=== PATIENT | male | born 1935 | race Caucasian/White ===

== ENCOUNTER 2016-03-26 17:37 | Inpatient (IN) | payer OTHER ==
--- NOTE | 2016-03-26 18:33 | PDOC ---
History of Present Illness - General Chief Complaint: Respiratory Stated Complaint: COLD SYMPTOMS Time Seen by Provider: 03/26/16 18:14 History Source: Patient Exam Limitations: No Limitations - History of Present Illness Initial Comments: 03/26/16 18:27 Patient is a 80 year old male with PMH of CLL, Bladder CA (states in remission) , Diverticulosis, HLD who presents to ED with cough since Thursday. He states cough has been productive with wiley sputum and is constant. He states he has had a loss of appetite, general body aches and feels like he has a cold. Denies any sick contacts. Denies fever, chills, headache, chest pain, SOB, nausea, vomiting diarrhea or constipation. Past History - Travel Traveled outside of the country in the last 30 days: No Close contact w/someone who was outside of country & ill: No - Past Medical History Allergies/Adverse Reactions: Allergies Allergy/AdvReac Type Severity Reaction Status Date / Time lactose AdvReac Verified 03/26/16 17:54 Home Medications: Ambulatory Orders Ascorbic Acid [Vitamin C] 100 mg PO DAILY 10/14/13 Aspirin [ASA -] 81 mg PO DAILY 10/14/13 Folic Acid/Multivit-Min/Lutein [Centrum Silver Chewable Tablet] 1 each PO DAILY 10/14/13 Ubidecarenone/Vitamin E [Co Q-10 50 mg Softgel] 1 each PO DAILY 10/14/13 Vitamin B Complex 1 each PO DAILY 10/14/13 Cholecalciferol (Vitamin D3) [Vitamin D3 -] 50,000 unit PO WEEKLY 03/26/16 Cancer: Yes (CHRONIC LYMPHOCYTIC LEUKEMIA) GI Disorders: Yes (DIVERTICULOSIS, POLYPS) Hypercholesterolemia: Yes Liver Disease: Yes (FATTY LIVER) Other medical history: S/P BLADDER SX for cancer - Surgical History GI Surgery: Yes (BLADDER) Other Surgical History: 03/26/16 18:30 CEA x1 - Family Disease History Comment:: 03/26/16 18:30 noncontributory - Psycho/Social/Smoking Cessation Hx Suicidal Ideation: No Smoking History: Former smoker Have you smoked in the past 12 months: No If you are a former smoker, when did you quit?: 50 YRS Information on smoking cessation initiated: No Hx Alcohol Use: No Drug/Substance Use Hx: No Substance Use Type: None Hx Substance Use Treatment: No Review of Systems - Review of Systems Able to Perform ROS?: Yes Is the patient limited Persian proficient: No Constitutional: Yes: Loss of Appetite, Malaise, Weakness. No: Chills, Fever HEENTM: Yes: Nose Congestion. No: Blurred Vision, Ear Discharge, Throat Pain Respiratory: Yes: Productive cough. No: Shortness of Breath, Hemoptysis Cardiac (ROS): No: Chest Pain, Irregular Heart Rate, Lightheadedness, Syncope ABD/GI: No: Constipated, Diarrhea, Nausea, Vomiting All Other Systems: Reviewed and Negative *Physical Exam - Vital Signs Last Vital Signs Temp Pulse Resp BP Pulse Ox 98.0 F 104 H 20 162/91 91 L 03/26/16 17:50 03/26/16 17:50 03/26/16 17:50 03/26/16 17:50 03/26/16 17:50 - Physical Exam General Appearance: Yes: Nourished, Appropriately Dressed HEENT: positive: EOMI, COURTNEY, Normal ENT Inspection, Pharynx Normal Neck: positive: Trachea midline, Normal Thyroid, Supple Respiratory/Chest: positive: Lungs Clear, Normal Breath Sounds Cardiovascular: positive: Regular Rhythm, Regular Rate, S1, S2 Gastrointestinal/Abdominal: positive: Normal Bowel Sounds, Flat, Soft Musculoskeletal: positive: Normal Inspection Extremity: positive: Normal Inspection, Normal Range of Motion Integumentary: positive: Normal Color, Dry, Warm Neurologic: positive: Fully Oriented, Alert, Normal Mood/Affect, Motor Strength 5/5 ED Treatment Course - LABORATORY CBC & Chemistry Diagram: 03/26/16 18:28 03/26/16 18:28 - RADIOLOGY Radiology Studies Ordered: Category Date Time Status CHEST X-RAY PORTABLE* [RAD] Stat Radiology 03/26/16 18:26 Ordered Medical Decision Making - Medical Decision Making 03/26/16 18:32 Ordered CBC, CMP, lactic acid, troponin, BNP & blood cultures. Ordered influenza & CXR as well. Will give 1liter IVF NS for hydration. O2 sat is 87%, will likely need admission for community acquired pneumonia. 03/26/16 19:04 WBC count found to be 42. Likely due to CLL (WBC from 2013 was also >40). Will cover with Azithromycin & Ceftriaxone for CAP. *DC/Admit/Observation/Transfer Diagnosis at time of Disposition: Hypoxia Pneumonia Qualifiers: Pneumonia type: due to unspecified organism Laterality: unspecified laterality Lung location: unspecified part of lung Qualified Code(s): J18.9 - Pneumonia, unspecified organism
[2016-03-26 18:38] LABS: MCHC 32.8 g/dl (32.0-35.9); MEAN CELL VOLUME 94.3 fl (80-96); MEAN PLT VOLUME 7.2 fl (7.5-11.1); PLATELET COUNT 264 K/MM3 (134-434); RDW 14.1 % (11.9-15.9)
[2016-03-26] MEDS ORDERED: SODIUM CHLORIDE 1,000 ML IV STA (18:40)
--- NOTE | 2016-03-26 18:55 | PDOC ---
Attending Attestation - Resident Resident Name: CasimiroMegana - ED Attending Attestation I have performed the following: I have examined & evaluated the patient, The case was reviewed & discussed with the resident, I agree w/resident's findings & plan, Exceptions are as noted - HPI HPI: 03/26/16 18:52 80-year-old male with past medical history of CLL, diverticulosis, bladder cancer in remission, hyperlipidemia, not currently on chemotherapy presents to the emergency department for cough and shortness of breath for 5 days. He denies fevers but reports this clearish greenish sputum-like production. Denies sick contacts or recent travels. - Physicial Exam PE: 03/26/16 18:53 GENERAL: Awake, alert, and fully oriented. Mildly tachypnea to mid 20s. HEAD: No signs of trauma EYES: PERRLA, EOMI, sclera anicteric, conjunctiva clear ENT: Auricles normal inspection, hearing grossly normal, nares patent, oropharynx clear without exudates. NECK: Normal ROM, supple, no lymphadenopathy, JVD, or masses LUNGS: Inspiratory crackles at the left base the lungs. HEART: Regular rate and rhythm, normal S1 and S2. soft systolic murmur ABDOMEN: Soft, nontender, normoactive bowel sounds. No guarding, no rebound. No masses EXTREMITIES: Normal range of motion, no edema. No clubbing or cyanosis. No cords, erythema, or tenderness NEUROLOGICAL: Cranial nerves II through XII grossly intact. Normal speech, normal gait SKIN: Warm, Dry, normal turgor, no rashes or lesions noted. - Medical Decision Making 03/26/16 18:53 O2 saturation is 87% concerning for community acquired pneumonia. Patient has not been hospitalized in last 3 months. We'll swab for influenza. Obtain chest x -ray. Obtain labs including lactic acid and likely admit the patient to the hospital. 03/26/16 20:12 ECG: NSR 95, T wave flat aVL, no std/paul, normal axis, normal intervals, QTC 477 msec
[2016-03-26] MEDS ORDERED: AZITHROMYCIN IVPB 500 MG in DEXTROSE 5%-WATER - 250 ML IVPB ONE (19:03)
[2016-03-26] MEDS ORDERED: CEFTRIAXONE 1 GM in DEXTROSE 5%-WATER - 50 ML IVPB ONE (19:03)
[2016-03-26 19:04] LABS: WHITE BLOOD COUNT 42.2 K/mm3 (4.0-10.0)
[2016-03-26] MEDS ORDERED: ACETAMINOPHEN 325 MG TABLET (FP) PO ONE (19:37)
[2016-03-26 19:38] LABS: ALBUMIN 3.4 g/dl (3.4-5.0); ANION GAP 11 (8-16); BILIRUBIN,TOTAL 0.8 mg/dL (0.2-1.0); CO2 30 mmol/L (21-32); CREATININE 0.7 mg/dL (0.7-1.3); GLUCOSE,RANDOM 127 mg/dL (74-106); SGPT/ALT 42 U/L (12-78)
[2016-03-26 19:39] LABS: ALK PHOS 84 U/L (45-117)
[2016-03-26 19:39] LABS: TROPONIN I < 0.02 ng/ml (0.00-0.05)
[2016-03-26 19:47] LABS: SGOT/AST 42 U/L (15-37)
[2016-03-26] MEDS ORDERED: AZITHROMYCIN IVPB 250 ML IVPB ONE (20:07)
[2016-03-26] MEDS ORDERED: CEFTRIAXONE 50 ML ONE (20:07)
[2016-03-26] MEDS ORDERED: ACETAMINOPHEN 325 MG TABLET (FP) ONE (20:08)
[2016-03-26 20:38] LABS: PLATELET ESTIMATE ADEQUATE (NORMAL)
--- NOTE | 2016-03-26 21:13 | PN ---
<Donis Starkey - Last Filed: 03/26/16 21:12> Teaching Attending Note Name of Resident: Odilia Lemus ATTENDING PHYSICIAN STATEMENT I saw and evaluated the patient. I reviewed the resident's note and discussed the case with the resident. I agree with the resident's findings and plan as documented. SUBJECTIVE: OBJECTIVE: ASSESSMENT AND PLAN: <Ashley Baptiste - Last Filed: 03/27/16 01:18> Teaching Attending Note ATTENDING PHYSICIAN STATEMENT I saw and evaluated the patient. I reviewed the resident's note and discussed the case with the resident. I agree with the resident's findings and plan as documented. SUBJECTIVE: 80 yo M with a PMHx of CLL, Bladder CA (states in remission), Diverticulosis, HLD and fatty liver disease who presents with productive cough and mild SOB for 1 day. Patient notes he is coughing up green sputum. Patient denies coughing up blood. He reports he gets his flu shot every year and has had no IV antibiotic use within the past 3 months. Patient also reports an associated dry mouth for 1 day. Denies sick contacts, fever, chills, abdominal pain, nausea, vomiting, diarrhea , and dysuria. Allergies: NKDA Surgical Hx: tonsillectomy, bladder surgery Social Hx: Former smoker, quit 60 years ago OBJECTIVE: Last Vital Signs Temp Pulse Resp BP Pulse Ox 98.6 F 99 H 20 144/73 98 03/26/16 22:46 03/26/16 22:46 03/26/16 22:46 03/26/16 22:46 03/26/16 22:46 GENERAL: Awake, alert, and fully oriented, in no acute distress. HEENT: Atraumatic. Moist mucosa. No JVD. No pharyngeal erythema or exudates. No sinus tenderness. No LAD. LUNGS: No distress, speaks full sentences, scatter rhonchi bilaterally. Bibasilar crackles. HEART: Regular rate and rhythm, normal S1 and S2, no murmurs, rubs or gallops, peripheral pulses normal and equal bilaterally. ABDOMEN: Soft, nontender, normoactive bowel sounds. No guarding, no rebound. No masses. EXTREMITIES: Normal inspection, Normal range of motion, no edema. No clubbing or cyanosis. NEUROLOGICAL: Normal speech, no focal sensorimotor deficits SKIN: Warm, Dry, normal turgor, no rashes or lesions noted. CBCD WBC 42.2 K/mm3 (4.0-10.0) H* 03/26/16 18: RBC 4.72 M/mm3 (4.00-5.60) 03/26/16 18: Hgb 14.6 GM/dL (11.7-16.9) 03/26/16 18:28 Hct 44.5 % (35.4-49) 03/26/16 18: MCV 94.3 fl (80-96) 03/26/16 18: MCHC 32.8 g/dl (32.0-35.9) 03/26/16 18: RDW 14.1 % (11.9-15.9) 03/26/16 18: Plt Count 264 K/MM3 (134-434) D 03/26/16 18: MPV 7.2 fl (7.5-11.1) L 03/26/16 18: CMP Sodium 134 mmol/L (136-145) L 03/26/16 18: Potassium 3.6 mmol/L (3.5-5.1) 03/26/16 18: Chloride 93 mmol/L (98-107) L D 03/26/16 18: Carbon Dioxide 30 mmol/L (21-32) 03/26/16 18: Anion Gap 11 (8-16) 03/26/16 18:28 BUN 11 mg/dL (7-18) D 03/26/16 18: Creatinine 0.7 mg/dL (0.7-1.3) 03/26/16 18:28 Creat Clearance w eGFR > 60 (>60) 03/26/16 18: Calcium 9.0 mg/dL (8.5-10.1) 03/26/16 18: Total Bilirubin 0.8 mg/dL (0.2-1.0) 03/26/16 18: AST 42 U/L (15-37) H D 03/26/16 18:28 ALT 42 U/L (12-78) 03/26/16 18:28 Alkaline Phosphatase 84 U/L (45-117) D 03/26/16 18: Total Protein 7.0 g/dl (6.4-8.2) 03/26/16 18:28 Albumin 3.4 g/dl (3.4-5.0) D 03/26/16 18:28 Chest X-Ray Impression: Probable mild congestion. ASSESSMENT AND PLAN: 80 yo M with a PMHx of CLL, Bladder CA (states in remission), Diverticulosis, HLD and fatty liver disease who is admitted with community acquired pneumonia. 1.) CAP bilateral interstitial infiltrates on CXR, fevers, productive cough, and tachycardia. Blood cultures x2 Sputum culture Legionella antigen in urine Ceftriaxone 2 g IV Q 24 hours Azithromycin 500 mg IV Q 24 hours 2 L O2 nasal cannula 2.) DVT ppx Heparin 5000 units sc Q 8 hours Regular diet Documentation prepared by Ashley Baptiste, acting as director medical surgical for Donis Starkey M.D.
--- NOTE | 2016-03-26 21:24 | PDOC ---
*Physical Exam - Vital Signs Last Vital Signs Temp Pulse Resp BP Pulse Ox 100.6 F H 104 H 20 162/91 97 03/26/16 19:37 03/26/16 17:50 03/26/16 17:50 03/26/16 17:50 03/26/16 17:55 <Andrade Machado - Last Filed: 03/26/16 21:27> - Vital Signs Last Vital Signs Temp Pulse Resp BP Pulse Ox 100.6 F H 104 H 20 162/91 97 03/26/16 19:37 03/26/16 17:50 03/26/16 17:50 03/26/16 17:50 03/26/16 17:55 <Davi Yancey - Last Filed: 03/28/16 11:52> ED Treatment Course - LABORATORY CBC & Chemistry Diagram: 03/26/16 18:28 03/26/16 18:28 - ADDITIONAL ORDERS Additional order review: Laboratory Results 03/26/16 03/26/16 03/26/16 18:28 18:28 18:25 Sodium 134 L Potassium 3.6 Chloride 93 L D Carbon Dioxide 30 Anion Gap 11 BUN 11 D Creatinine 0.7 Creat Clearance w eGFR > 60 Random Glucose 127 H D Lactic Acid 1.544 Calcium 9.0 Total Bilirubin 0.8 AST 42 H D ALT 42 Alkaline Phosphatase 84 D Creatine Kinase CK-MB (CK-2) Rel Index Troponin I B-Natriuretic Peptide 161.10 Total Protein 7.0 Albumin 3.4 D 03/26/16 03/26/16 17:55 17:55 Sodium Potassium Chloride Carbon Dioxide Anion Gap BUN Creatinine Creat Clearance w eGFR Random Glucose Lactic Acid Calcium Total Bilirubin AST ALT Alkaline Phosphatase Creatine Kinase 160 CK-MB (CK-2) Rel Index Cancelled Troponin I < 0.02 B-Natriuretic Peptide Total Protein Albumin 03/26/16 18:30 Influenza Types A,B Antigen (PAIGE) - Final Nasopharyngeal Aspirate - Final 03/26/16 18:28 RBC 4.72 MCV 94.3 MCHC 32.8 RDW 14.1 MPV 7.2 L Neutrophils % 10.0 L Lymphocytes % 81.0 H Monocytes % 4.0 D - Medications Given in the ED: ED Medications Discontinued Medications Generic Name Dose Route Start Last Admin Trade Name Freq PRN Reason Stop Dose Admin Acetaminophen 650 mg 03/26/16 19:37 03/26/16 20:13 Tylenol - PO 03/26/16 19:38 650 mg ONCE ONE Administration Sodium Chloride 1,000 mls @ 1,000 mls/hr 03/26/16 18:40 03/26/16 18:50 Normal Saline - IV 03/26/16 19:39 1,000 mls/hr ASDIR STA Administration Azithromycin 500 mg/ Dextrose 250 mls @ 250 mls/hr 03/26/16 19:03 03/26/16 20: 58 IVPB 03/26/16 20:02 250 mls/hr ONCE ONE Administration Ceftriaxone Sodium 1 gm/ 50 mls @ 100 mls/hr 03/26/16 19:03 03/26/16 20:09 Dextrose IVPB 03/26/16 19:32 100 mls/hr ONCE ONE Administration <Andrade Machado - Last Filed: 03/26/16 21:27> - LABORATORY CBC & Chemistry Diagram: 03/28/16 06:30 03/26/16 18:28 - ADDITIONAL ORDERS Additional order review: Laboratory Results 03/26/16 03/26/16 03/26/16 18:28 18:28 18:25 Sodium 134 L Potassium 3.6 Chloride 93 L D Carbon Dioxide 30 Anion Gap 11 BUN 11 D Creatinine 0.7 Creat Clearance w eGFR > 60 Random Glucose 127 H D Lactic Acid 1.544 Calcium 9.0 Total Bilirubin 0.8 AST 42 H D ALT 42 Alkaline Phosphatase 84 D Creatine Kinase CK-MB (CK-2) Rel Index Troponin I B-Natriuretic Peptide 161.10 Total Protein 7.0 Albumin 3.4 D 03/26/16 03/26/16 17:55 17:55 Sodium Potassium Chloride Carbon Dioxide Anion Gap BUN Creatinine Creat Clearance w eGFR Random Glucose Lactic Acid Calcium Total Bilirubin AST ALT Alkaline Phosphatase Creatine Kinase 160 CK-MB (CK-2) Rel Index Cancelled Troponin I < 0.02 B-Natriuretic Peptide Total Protein Albumin 03/26/16 18:30 Influenza Types A,B Antigen (PAIGE) - Final Nasopharyngeal Aspirate - Final 03/26/16 18:28 RBC 4.72 MCV 94.3 MCHC 32.8 RDW 14.1 MPV 7.2 L Neutrophils % 10.0 L Lymphocytes % 81.0 H Monocytes % 4.0 D - Medications Given in the ED: ED Medications Discontinued Medications Generic Name Dose Route Start Last Admin Trade Name Sushma PRN Reason Stop Dose Admin Acetaminophen 650 mg 03/26/16 19:37 03/26/16 20:13 Tylenol - PO 03/26/16 19:38 650 mg ONCE ONE Administration Sodium Chloride 1,000 mls @ 1,000 mls/hr 03/26/16 18:40 03/26/16 18:50 Normal Saline - IV 03/26/16 19:39 1,000 mls/hr ASDIR STA Administration Azithromycin 500 mg/ Dextrose 250 mls @ 250 mls/hr 03/26/16 19:03 03/26/16 20: 58 IVPB 03/26/16 20:02 250 mls/hr ONCE ONE Administration Ceftriaxone Sodium 1 gm/ 50 mls @ 100 mls/hr 03/26/16 19:03 03/26/16 20:09 Dextrose IVPB 03/26/16 19:32 100 mls/hr ONCE ONE Administration <Davi Yancey - Last Filed: 03/28/16 11:52> Medical Decision Making - Medical Decision Making 03/26/16 21:27 Dr. Chery was called regarding the patient. Dr. Celeste covering. At 8:16pm, 8: 35pm and 9:02pm [phone] <Andrade Machado - Last Filed: 03/26/16 21:27> - Medical Decision Making 03/26/16 21:23 Chest xray reviewed. Congestive findings. CBC, BMP 03/26/16 18:28 03/26/16 18:28 CMP Sodium 134 mmol/L (136-145) L 03/26/16 18:28 Potassium 3.6 mmol/L (3.5-5.1) 03/26/16 18:28 Chloride 93 mmol/L (98-107) L D 03/26/16 18:28 Carbon Dioxide 30 mmol/L (21-32) 03/26/16 18:28 Anion Gap 11 (8-16) 03/26/16 18:28 BUN 11 mg/dL (7-18) D 03/26/16 18:28 Creatinine 0.7 mg/dL (0.7-1.3) 03/26/16 18:28 Creat Clearance w eGFR > 60 (>60) 03/26/16 18:28 Random Glucose 127 mg/dL (74-106) H D 03/26/16 18:28 Lactic Acid 1.544 mmol/L (0.4-2.0) 03/26/16 18:28 Calcium 9.0 mg/dL (8.5-10.1) 03/26/16 18:28 Total Bilirubin 0.8 mg/dL (0.2-1.0) 03/26/16 18:28 AST 42 U/L (15-37) H D 03/26/16 18:28 ALT 42 U/L (12-78) 03/26/16 18:28 Alkaline Phosphatase 84 U/L (45-117) D 03/26/16 18:28 Creatine Kinase 160 IU/L (39-308) 03/26/16 17:55 CK-MB (CK-2) Rel Index Cancelled 03/26/16 17:55 Troponin I < 0.02 ng/ml (0.00-0.05) 03/26/16 17:55 B-Natriuretic Peptide 161.10 pg/ml (5-450) 03/26/16 18:25 Total Protein 7.0 g/dl (6.4-8.2) 03/26/16 18:28 Albumin 3.4 g/dl (3.4-5.0) D 03/26/16 18:28 Ceftriaxone and azithromycin ordered. Case discussed with Dr. Celeste. requests [facility] hospitalist for admission. Case discussed with Dr. Starkey. He accepts for CAP on med/surg admission. Case discussed in detail with admitting physician including history, physical exam and ancillary studies. Admitting physician has assumed care for the patient, will follow all pending diagnostics and will complete the evaluation and treatment. <Davi Yancey - Last Filed: 03/28/16 11:52> *DC/Admit/Observation/Transfer <Andrade Machado - Last Filed: 03/26/16 21:27> - Discharge Dispostion Admit: Yes <Davi Yancey - Last Filed: 03/28/16 11:52> Diagnosis at time of Disposition: Hypoxia Pneumonia Qualifiers: Pneumonia type: due to unspecified organism Laterality: unspecified laterality Lung location: unspecified part of lung Qualified Code(s): J18.9 - Pneumonia, unspecified organism - Referrals
[2016-03-26] MEDS ORDERED: ALBUTEROL SO4 0.083% IH SOL 2.5 MG/3 ML VIAL.NEB. NEB ONE ×2 (21:37→21:58)
--- NOTE | 2016-03-26 22:38 | HP ---
CHIEF COMPLAINT: Cough with green phlegm PCP: Dr. Black Chery HISTORY OF PRESENT ILLNESS: Patient is an 80 year old male with a PMHx of CLL, Bladder cancer on remission, diverticulosis, HLD, fatty liver disease who complains of a productive cough with nonbloody green sputum, mild shortness of breath and runny nose that began one day ago associated with a dry mouth. Patient denies sick contacts and does report to having his flu shot this year. He denies recent IV antibiotics use or hospitalizations within the past three months. Otherwise, patient denies fever, chills, headache, dizziness, acute vision loss, nausea, vomiting, palpitations, shortness of breath, abdominal pain, diarrhea, dysuria, hematuria. ER course was notable for: (1) Azithromycin and Ceftriaxone given (2) Ventolin treatment (3) 1L IV NS, and Tylenol 650mg PO Recent Travel: Denies PAST MEDICAL HISTORY: CLL, Bladder cancer on remission, diverticulosis, HLD, fatty liver disease PAST SURGICAL HISTORY: Tonsillectomy Social History: Smoking: Former smoker, quit at the age of 18 Alcohol: Denies Drugs: Denies Family History: Denies Allergies: lactose Adverse Reaction (Verified 03/26/16 17:54) HOME MEDICATIONS: Medication Instructions Recorded Ascorbic Acid [Vitamin C] 100 mg PO 10/14/13 Aspirin [ASA -] 81 mg PO DAILY 10/14/13 Folic Acid/Multivit-Min/Lutein 1 each PO DAILY 10/14/13 [Centrum Silver Chewable Tablet] No Aspirin 10/14/13 Psyllium Seed [Metamucil] 425 gm PO DAILY 10/14/13 Rosuvastatin Calcium [Crestor] 20 mg PO DAILY 10/14/13 Ubidecarenone/Vitamin E [Co Q-10 1 each PO DAILY 10/14/13 50 mg Softgel] Vitamin B Complex 1 each PO DAILY 10/14/13 REVIEW OF SYSTEMS CONSTITUTIONAL: Present: generalized weakness, malaise, loss of appetite Absent: fever, chills, diaphoresis, weight change HEENT: Present: rhinorrhea Absent: nasal congestion, throat pain, throat swelling, difficulty swallowing, mouth swelling, ear pain, eye pain, visual changes CARDIOVASCULAR: Absent: chest pain, syncope, palpitations, irregular heart rate, lightheadedness , peripheral edema RESPIRATORY: Present: cough Absent: shortness of breath, dyspnea with exertion, orthopnea, wheezing, stridor , hemoptysis GASTROINTESTINAL: Absent: abdominal pain, abdominal distension, nausea, vomiting, diarrhea, constipation, melena, hematochezia GENITOURINARY: Absent: dysuria, frequency, urgency, hesitancy, hematuria, flank pain, genital pain MUSCULOSKELETAL: Absent: myalgia, arthralgia, joint swelling, back pain, neck pain SKIN: Absent: rash, itching, pallor HEMATOLOGIC/IMMUNOLOGIC: Absent: easy bleeding, easy bruising, lymphadenopathy, frequent infections ENDOCRINE: Absent: unexplained weight gain, unexplained weight loss, heat intolerance, cold intolerance NEUROLOGIC: Absent: headache, focal weakness or paresthesias, dizziness, unsteady gait, seizure, mental status changes, bladder or bowel incontinence PSYCHIATRIC: Absent: anxiety, depression, suicidal or homicidal ideation, hallucinations. PHYSICAL EXAMINATION Vital Signs - 24 hr 03/26/16 03/26/16 03/26/16 17:50 17:55 19:37 Temperature 98.0 F 100.6 F H Pulse Rate 104 H Respiratory 20 Rate Blood Pressure 162/91 O2 Sat by Pulse 91 L 97 Oximetry (%) Last Vital Signs Temp Pulse Resp BP Pulse Ox 98.6 F 90 20 136/62 98 03/27/16 01:27 03/27/16 01:27 03/27/16 01:27 03/27/16 01:27 03/27/16 01:27 GENERAL: Awake, alert, and fully oriented, in no acute distress. HEAD: Normal with no signs of trauma. EYES: sclera anicteric, conjunctiva clear. No lid lag. EARS, NOSE, THROAT: Ears normal, nares patent, oropharynx clear without exudates. Moist mucous membranes. NECK: Normal range of motion, supple without lymphadenopathy, JVD, or masses. LUNGS: Scattered rhonchi bilaterally with bibasilar crackles. No accessory muscle use. HEART: Regular rate and rhythm, normal S1 and S2 without murmur, rub or gallop. ABDOMEN: Soft, nontender, not distended, normoactive bowel sounds, no guarding, no rebound, no masses. No hepatomegaly or splenomegaly. EXTREMITIES: No peripheral edema, no clubbing or cyanosis. Normal range of motion NEUROLOGICAL: Normal speech and no focal deficits SKIN: Warm, dry, normal turgor, no rashes or lesions noted. Laboratory Results - last 24 hr 03/26/16 03/26/16 03/26/16 17:55 17:55 18:25 WBC RBC Hgb Hct MCV MCHC RDW Plt Count MPV Neutrophils % Lymphocytes % Monocytes % Band Neutrophils Platelet Estimate RBC Morphology Sodium Potassium Chloride Carbon Dioxide Anion Gap BUN Creatinine Creat Clearance w eGFR Random Glucose Lactic Acid Calcium Total Bilirubin AST ALT Alkaline Phosphatase Creatine Kinase 160 CK-MB (CK-2) Rel Index Cancelled Troponin I < 0.02 B-Natriuretic Peptide 161.10 Total Protein Albumin 03/26/16 03/26/16 03/26/16 18:28 18:28 18:28 WBC 42.2 H* RBC 4.72 Hgb 14.6 Hct 44.5 MCV 94.3 MCHC 32.8 RDW 14.1 Plt Count 264 D MPV 7.2 L Neutrophils % 10.0 L Lymphocytes % 81.0 H Monocytes % 4.0 D Band Neutrophils 5.0 D Platelet Estimate Adequate RBC Morphology Appears normal Sodium 134 L Potassium 3.6 Chloride 93 L D Carbon Dioxide 30 Anion Gap 11 BUN 11 D Creatinine 0.7 Creat Clearance w eGFR > 60 Random Glucose 127 H D Lactic Acid 1.544 Calcium 9.0 Total Bilirubin 0.8 AST 42 H D ALT 42 Alkaline Phosphatase 84 D Creatine Kinase CK-MB (CK-2) Rel Index Troponin I B-Natriuretic Peptide Total Protein 7.0 Albumin 3.4 D Chest x-ray: Mild pulmonary congestion with bilateral interstitial infiltrates EKG: NSR@95 BPM, (-) ST elevation or depression, with QTC 477 ASSESSMENT/PLAN: Patient is an 80 year old male with a PMHx of CLL, Bladder cancer on remission, diverticulosis, fatty liver disease who presented for a productive cough with green sputum for the past 24 hours associated mild shortness of breath. Patient was found to have an 02 saturation of 87%. Patient admitted to med/surg for further monitoring and management. Community Acquired Pneumonia -Presented with fever, cough, tachycardia, leukocytosis of 42.2 with bilateral interstitial infiltrates -Lactic Acid negative -Blood cultures sent -Urine legionella antigen -Respiratory PCR panel -Mycoplasma IgM -Sputum culture -Tylenol 650mg Q8H PRN -Azithromycin 500mg IV daily and Ceftriaxone 1gm daily -Continue with 02 F/E/N -On no fluids -Electrolytes wnl -Regular diet Prophylaxis -SCD's for prophylaxis -No GI needed Disposition -Full code -Admitted to med/surg Visit type - Emergency Visit Emergency Visit: Yes ED Registration Date: 03/26/16 Care time: The patient presented to the Emergency Department on the above date and was hospitalized for further evaluation of their emergent condition. - New Patient This patient is new to me today: Yes Date on this admission: 03/27/16 - Critical Care Critical Care patient: No
[2016-03-27] MEDS ORDERED: ACETAMINOPHEN 325 MG TABLET (FP) PO PRN (01:56)
[2016-03-27 01:57] VITALS: BMI 26.6
[2016-03-27] MEDS: INSULIN SLIDING SCALE (NOVOLOG) 1 VIAL SQ SCH ×2 (06:12→18:02)
[2016-03-27 08:22] LABS: MCHC 33.7 g/dl (32.0-35.9); MEAN CELL VOLUME 94.8 fl (80-96); MEAN PLT VOLUME 7.3 fl (7.5-11.1); PLATELET COUNT 247 K/MM3 (134-434)
[2016-03-27 08:27] LABS: WHITE BLOOD COUNT 41.9 K/mm3 (4.0-10.0)
[2016-03-27] MEDS: ASPIRIN 81 MG CHEWABLE TABLETS PO SCH (09:48)
[2016-03-27] MEDS: CEFTRIAXONE 50 ML IVPB SCH (09:48)
[2016-03-27] MEDS: AZITHROMYCIN IVPB 250 ML IVPB SCH (09:48)
--- NOTE | 2016-03-27 10:21 | CONSULT ---
Consult Consult Specialty:: PULMONARY Referred by:: Hospitalist Reason for Consultation:: pneumonia - History of Present Illness Chief Complaint: fever, cough History of Present Illness: 80yo male with h/o CLL, bladder ca in remission, hyperlipidemia, fatty liver disease, diverticulosis who presents with worsening cough x 1 day. He reports a cough productive of green sputum and subjective fevers. No sick contacts or recent travel. He did receive his flu shot this year. No nausea, vomiting or diarrhea. Some dyspnea with exertion but without chest pain or palpitations. He does not know his baseline WBC although in Mar 2012 his WBC was 40K. - History Source History Provided By: Patient, Medical Record Limitations to Obtaining History: No Limitations - Past Medical History Cardio/Vascular: Yes: Hyperlipdemia Gastrointestinal: Yes: Diverticulosis - Alcohol/Substance Use Hx Alcohol Use: No - Smoking History Smoking history: Former smoker Have you smoked in the past 12 months: No If you are a former smoker, when did you quit?: 50 YRS Home Medications - Allergies Allergies/Adverse Reactions: Allergies Allergy/AdvReac Type Severity Reaction Status Date / Time lactose AdvReac Verified 03/26/16 17:54 - Home Medications Home Medications: Ambulatory Orders Ascorbic Acid [Vitamin C] 100 mg PO DAILY 10/14/13 Aspirin [ASA -] 81 mg PO DAILY 10/14/13 Folic Acid/Multivit-Min/Lutein [Centrum Silver Chewable Tablet] 1 each PO DAILY 10/14/13 Ubidecarenone/Vitamin E [Co Q-10 50 mg Softgel] 1 each PO DAILY 10/14/13 Vitamin B Complex 1 each PO DAILY 10/14/13 Cholecalciferol (Vitamin D3) [Vitamin D3 -] 50,000 unit PO WEEKLY 03/26/16 Review of Systems - Review of Systems Constitutional: reports: Fever, Malaise, Weakness Eyes: denies: Recent Change in Vision HENT: reports: Nasal Congestion. denies: Throat Pain Neck: denies: Stiffness, Tenderness Cardiovascular: reports: Shortness of Breath. denies: Chest Pain, Palpitations Respiratory: reports: Cough, SOB, SOB on Exertion. denies: Hemoptysis, Wheezing Gastrointestinal: denies: Abdominal Pain, Nausea, Vomiting Genitourinary: denies: Dysuria, Hematuria Neurological: denies: Dizziness, Headache Physical Exam Vital Signs: Vital Signs Temperature 98.9 F 03/27/16 06:00 Pulse Rate 84 03/27/16 06:00 Respiratory Rate 20 03/27/16 06:00 Blood Pressure 103/52 03/27/16 06:00 O2 Sat by Pulse Oximetry (%) 98 03/27/16 01:27 Constitutional: Yes: No Distress, Calm Eyes: Yes: Conjunctiva Clear, EOM Intact HENT: Yes: Atraumatic, Normocephalic Neck: Yes: Supple, Trachea Midline Cardiovascular: Yes: Regular Rate and Rhythm Respiratory: Yes: Rales (bibasilar rales R>L) Gastrointestinal: Yes: Normal Bowel Sounds, Soft. No: Tenderness Edema: No Neurological: Yes: Alert, Oriented Labs: CBC, BMP 03/27/16 06:15 Imaging - Results Chest X-ray: Report Reviewed, Image Reviewed (mild pulmonary vascular congestion , ?RLL infiltrate) Problem List - Problems (1) Pneumonia Code(s): J18.9 - PNEUMONIA, UNSPECIFIED ORGANISM Qualifiers: Pneumonia type: due to unspecified organism Laterality: unspecified laterality Lung location: unspecified part of lung Qualified Code(s): J18.9 - Pneumonia, unspecified organism (2) CLL (chronic lymphocytic leukemia) Code(s): C91.10 - CHRONIC LYMPHOCYTIC LEUK OF B-CELL TYPE NOT ACHIEVE REMIS (3) Diverticulosis Code(s): K57.90 - DVRTCLOS OF INTEST, PART UNSP, W/O PERF OR ABSCESS W/O BLEED (4) Hyperlipidemia Code(s): E78.5 - HYPERLIPIDEMIA, UNSPECIFIED (5) Hypoxia Code(s): R09.02 - HYPOXEMIA Assessment/Plan Pneumonia CLL Hyperlipidemia Diverticulosis - agree with ceftriaxone, azithromycin - f/u cultures - O2 as needed - inhaled bronchodilators - PO as tolerated - DVT prophylaxis Thank you for this consult Shiva Celeste MD
[2016-03-27] MEDS ORDERED: ALBUTEROL SO4 0.083% IH SOL 2.5 MG/3 ML VIAL.NEB. NEB PRN (10:36)
[2016-03-27 10:42] LABS: PLATELET ESTIMATE ADEQUATE (NORMAL)
--- NOTE | 2016-03-27 12:12 | MSN ---
Progress Note (SOAP) - Subjective History of Present Illness: Jeremías Marino is an 80 y/o male with a pmh of CLL, Bladder ca, diverticulosis , HLD, and fatty liver disease who presented to the ED with a cough productive of arnold-purple sputum and mild SOB which was found to contribute to an O2 sat of 87%. Additionally he had a low-grade fever of 100.6. . I saw and spoke to the pt this morning and he is cooperative and feeling well. He only complains of the cough, says it is slightly better but has no other complaints. He denies SOB, wheezing, rinorrhea, f/c, h/a, nausea/vomiting. diarrhea, weakness, or dysuria. When speaking to him he speaks well with no accessory muscle use. - Current Medications Current Medications: Active Medications Acetaminophen (Tylenol -) 650 mg PO Q8H PRN PRN Reason: FEVER OR PAIN Albuterol Sulfate (Ventolin 0.083% Nebulizer Soln -) 1 amp NEB Q4H PRN PRN Reason: SHORT OF BREATH/WHEEZING Albuterol/Ipratropium (Duoneb -) 1 amp NEB TIDR [facility] Aspirin (Asa -) 81 mg PO DAILY [facility] Last Admin: 03/27/16 09:48 Dose: 81 mg Azithromycin (Zithromax 500mg Ivpb (Pre-Docked)) 250 mls @ 250 mls/hr IVPB DAILY [facility] Last Admin: 03/27/16 09:48 Dose: 250 mls/hr Ceftriaxone Sodium (Rocephin 1gm Ivpb (Pre-Docked)) 50 mls @ 100 mls/hr IVPB DAILY [facility] Last Admin: 03/27/16 09:48 Dose: 100 mls/hr Insulin Aspart (Novolog Vial Sliding Scale -) 1 vial SQ BIDI [facility] PRN Reason: Protocol Last Admin: 03/27/16 06:12 Dose: Not Given - Objective Vital Signs: Vital Signs Temperature 98.9 F 03/27/16 06:00 Pulse Rate 84 03/27/16 06:00 Respiratory Rate 20 03/27/16 06:00 Blood Pressure 103/52 03/27/16 06:00 O2 Sat by Pulse Oximetry (%) 98 03/27/16 01:27 Constitutional: Yes: No Distress Eyes: Yes: Conjunctiva Clear, EOM Intact, PERRL HENT: Yes: WNL (oropharync clear without erythema, no rinnorhea noted, pt has dentures which were not in) Neck: Yes: Supple Cardiovascular: Yes: Regular Rate and Rhythm, S1, S2 Respiratory: Yes: Other (Clear with bibasilar crackles and some increased breath sounds in the bases. No wheezes or rales noted) Gastrointestinal: Yes: Normal Bowel Sounds, Soft Extremities: Yes: WNL Peripheral Pulses WNL: Yes Neurological: Yes: Alert, Oriented, Cran Nerves II-XII Intact Labs Lab Results: CBC, BMP 03/27/16 06:15 Imaging - Results Chest X-ray: Report Reviewed, Image Reviewed (Bilateral congestion possible infiltrates in the bases) Assessment/Plan Community Acquired pneumonia -productive cough, infiltrates on xray, and low grade fever. was also slightly tachy -Curb 65 score of 1 with PSI 112-CLASS IV -Lactate was negative, blood and sputum cultures sent -urine legionella and pneumo sent as well -Started on IV AZithro 250 and Roephin 1gm -continue on o2 for now. was satting at 99% on 2LNC HLD -continue on home crestor -continue home ASA
--- NOTE | 2016-03-27 14:20 | EKG ---
Test Reason : Blood Pressure : / mmHG Vent. Rate : 095 BPM Atrial Rate : 095 BPM P-R Int : 164 ms QRS Dur : 102 ms QT Int : 380 ms P-R-T Axes : 068 071 054 degrees QTc Int : 477 ms POOR DATA QUALITY, INTERPRETATION MAY BE ADVERSELY AFFECTED NORMAL SINUS RHYTHM NONSPECIFIC ST ABNORMALITY ABNORMAL ECG WHEN COMPARED WITH ECG OF 10-JUL-2008 10:35, NO SIGNIFICANT CHANGE WAS FOUND Confirmed by COLLEEN VICK MD ([id number]) on 03/27/2016 2:20:21 PM Referred By: Confirmed By:COLLEEN VICK MD
[2016-03-27] MEDS: ALBUTEROL SO4 2.5/IPRATROPIUM 0.5 INH SOL 3 ML VIAL.NEB. NEB SCH ×2 (14:35→21:42)
--- NOTE | 2016-03-27 18:09 | PN ---
Physical Exam: SUBJECTIVE: Patient seen and examined at bedside. Feels well currently but still has some cough. He has no other complaints currently. Denies N/V/F/C, SOB, CP. Some underlying dementia possibly but is AAOX3 OBJECTIVE: Vital Signs Temperature 99 F 03/27/16 17:12 Pulse Rate 88 03/27/16 17:12 Respiratory Rate 20 03/27/16 17:12 Blood Pressure 129/57 03/27/16 17:12 O2 Sat by Pulse Oximetry (%) 98 03/27/16 09:00 GENERAL: The patient is awake, alert, and fully oriented, in no acute distress. HEAD: Normal with no signs of trauma. EYES: PERRL, extraocular movements intact, sclera anicteric, conjunctiva clear. No ptosis. ENT:moist mucous membranes. NECK: Trachea midline, full range of motion, supple. LUNGS: Bibasilar crackles HEART: Regular rate and rhythm, S1, S2 without murmur, rub or gallop. ABDOMEN: Soft, nontender, nondistended, normoactive bowel sounds, no guarding, no rebound, no hepatosplenomegaly, no masses. EXTREMITIES: 2+ pulses, warm, well-perfused, no edema. NEUROLOGICAL: Normal speech, gait notobserved. PSYCH: Possibly underlying dementia SKIN: Warm, dry, normal turgor, no rashes or lesions noted Laboratory Results - last 24 hr 03/27/16 03/27/16 03/27/16 06:11 06:15 17:22 WBC 41.9 H* RBC 4.28 Hgb 13.7 Hct 40.6 MCV 94.8 MCHC 33.7 RDW 14.0 Plt Count 247 MPV 7.3 L Neutrophils % 9.0 L Lymphocytes % 83.0 H Monocytes % 5.0 Band Neutrophils 3.0 D Platelet Estimate Adequate POC Glucometer 126 121 Microbiology 03/27/16 08:00 Urine - Urine Clean Catch Legionella Antigen - Final 03/27/16 08:00 Urine - Urine Clean Catch Streptococcus pneumoniae Antigen ( M - Final 03/27/16 07:44 Nasopharyngeal Swab Respiratory Virus (PCR) - Preliminary 03/26/16 18:30 Nasopharyngeal Aspirate Influenza Types A,B Antigen (PAIGE) - Final 03/26/16 18:30 Nasopharyngeal Aspirate - Final Active Medications Generic Name Dose Route Start Last Admin Trade Name Freq PRN Reason Stop Dose Admin Acetaminophen 650 mg 03/27/16 01:56 Tylenol - PO Q8H PRN FEVER OR PAIN Albuterol Sulfate 1 amp 03/27/16 10:36 Ventolin 0.083% Nebulizer Soln - NEB Q4H PRN SHORT OF BREATH/WHEEZING Albuterol/Ipratropium 1 amp 03/27/16 14:00 03/27/16 14:35 Duoneb - NEB 1 amp TIDR [facility] Administration Aspirin 81 mg 03/27/16 10:00 03/27/16 09:48 Asa - PO 81 mg DAILY [facility] Administration Azithromycin 250 mls @ 250 mls/hr 03/27/16 10:00 03/27/16 09:48 Zithromax 500mg Ivpb (Pre-Docked) IVPB 250 mls/hr DAILY [facility] Administration Ceftriaxone Sodium 50 mls @ 100 mls/hr 03/27/16 10:00 03/27/16 09:48 Rocephin 1gm Ivpb (Pre-Docked) IVPB 100 mls/hr DAILY [facility] Administration Insulin Aspart 1 vial 03/27/16 07:00 03/27/16 06:12 Novolog Vial Sliding Scale - SQ Not Given BIDI [facility] Protocol ASSESSMENT/PLAN: 80 y/o M w/PMH of CLL, Bladder cancer in remission, diverticulosis, DM, fatty liver disease presented to ER with c/o cough with green sputum x 1 day. Admitted for CAP. -CAP -WBC elevated but most likely secondary to CLL -f/u CXR in AM -improving currently -c/w ceftriaxone 1g iv qd, azithromycin 500 mg iv qd -UAg for PNA neg -rapid flu neg -f/u Resp virus panel, SpCx, BCx, mycoplasma -tylenol 650 mg po q8h prn for fever -CLL -elevated WBC most likely due to CLL -DM -c/w ISS, BGMs -FEN -regular diet -DVT ppx -ambulation advised -Dispo: -monitor for another night, if pt continues to improve, possible d/c tomorrow with oral abx Problem List - Problems (1) CLL (chronic lymphocytic leukemia) Code(s): C91.10 - CHRONIC LYMPHOCYTIC LEUK OF B-CELL TYPE NOT ACHIEVE REMIS (2) Hyperlipidemia Code(s): E78.5 - HYPERLIPIDEMIA, UNSPECIFIED (3) Hypoxia Code(s): R09.02 - HYPOXEMIA (4) Pneumonia Code(s): J18.9 - PNEUMONIA, UNSPECIFIED ORGANISM Qualifiers: Pneumonia type: due to unspecified organism Laterality: unspecified laterality Lung location: unspecified part of lung Qualified Code(s): J18.9 - Pneumonia, unspecified organism (5) Diabetes Code(s): E11.9 - TYPE 2 DIABETES MELLITUS WITHOUT COMPLICATIONS Visit type - Emergency Visit Emergency Visit: Yes ED Registration Date: 03/26/16 Care time: The patient presented to the Emergency Department on the above date and was hospitalized for further evaluation of their emergent condition. - New Patient This patient is new to me today: Yes Date on this admission: 03/27/16 - Critical Care Critical Care patient: No
--- NOTE | 2016-03-27 18:43 | PN ---
Teaching Attending Note Name of Resident: Daniel Mason ATTENDING PHYSICIAN STATEMENT I saw and evaluated the patient. I reviewed the resident's note and discussed the case with the resident. I agree with the resident's findings and plan as documented. SUBJECTIVE:continues to have productive cough with purple sputum. denies CP, SOB , fever, chills, rigors, N/V/C/D OBJECTIVE: Last Vital Signs Temp Pulse Resp BP Pulse Ox 99 F 88 20 129/57 98 03/27/16 17:12 03/27/16 17:12 03/27/16 17:12 03/27/16 17:12 03/27/16 09:00 General NAD CV S1 S2 RRR no murmur/rub/gallop Lungs rales at the bases no wheezing ASSESSMENT AND PLAN: 80yo M with PMH CLL, bladder cancer, HTN and fatty liver presented to the ER and was admitted for further evaluation of their emergent condition 1. Sepsis due to PNA- + fever, tachycardia and tachypnea. started on ceftriaxone and azithromycin. robitussin prn cough. influenza negative. mycoplasma, legionella and Cx pending 2. Acute hypoxic respiratory failure- oxygen saturation on presentation 87% requiring 3L NC to maintain spO2> 90%. likely due to pna. monitor oxygen levels. titrate down oxygen as tolerated 3. CLL- appears to be stable. as per pt not on therapy. Lekocytosis appears to be stable from previous admission in 2012. 4. bladder ca- in remission per pt. not on chemo/rtx 5. will d/c BGM and ISS as pt has no hx of DM and has been controlled. no indication for monitoring at this time 6. DVT ppx- EAM
[2016-03-28] MEDS: ALBUTEROL SO4 2.5/IPRATROPIUM 0.5 INH SOL 3 ML VIAL.NEB. NEB SCH ×2 (06:08→13:42)
[2016-03-28 08:26] LABS: MCH 31.2 pg (25.7-33.7); MCHC 32.9 g/dl (32.0-35.9); MEAN CELL VOLUME 94.8 fl (80-96); MEAN PLT VOLUME 7.3 fl (7.5-11.1); PLATELET COUNT 257 K/MM3 (134-434); RDW 13.7 % (11.9-15.9)
[2016-03-28 08:37] LABS: WHITE BLOOD COUNT 45.4 K/mm3 (4.0-10.0)
[2016-03-28] MEDS: ASPIRIN 81 MG CHEWABLE TABLETS PO SCH (09:19)
[2016-03-28] MEDS: CEFTRIAXONE 50 ML IVPB SCH (09:32)
[2016-03-28] MEDS: AZITHROMYCIN IVPB 250 ML IVPB SCH (09:59)
--- NOTE | 2016-03-28 14:23 | MSN ---
Progress Note (SOAP) - Subjective History of Present Illness: Jeremías Marino is an 80 y/o male with a pmh of CLL, Bladder ca, diverticulosis , HLD, and fatty liver disease who presented to the ED with a cough productive of arnold-purple sputum and mild SOB which was found to contribute to an O2 sat of 87%. Additionally he had a low-grade fever of 100.6. . I saw and spoke to the pt this morning and he is cooperative and feeling well. He still complains of the cough but to a lesser extent. He says it is less frequent. He states not to be in a madrigal to leave, but has no other complaints. He was not on nasal cannula when I spoke to him and he said that it didn't seem like he needed it. He denies SOB, wheezing, rinorrhea, f/c, h/a, nausea/ vomiting. diarrhea, weakness, or dysuria. When speaking to him he speaks well with no accessory muscle use. - Current Medications Current Medications: Active Medications Acetaminophen (Tylenol -) 650 mg PO Q8H PRN PRN Reason: FEVER OR PAIN Albuterol Sulfate (Ventolin 0.083% Nebulizer Soln -) 1 amp NEB Q4H PRN PRN Reason: SHORT OF BREATH/WHEEZING Albuterol/Ipratropium (Duoneb -) 1 amp NEB TIDR [facility] Last Admin: 03/28/16 13:42 Dose: 1 amp Aspirin (Asa -) 81 mg PO DAILY [facility] Last Admin: 03/28/16 09:19 Dose: 81 mg Azithromycin (Zithromax 500mg Ivpb (Pre-Docked)) 250 mls @ 250 mls/hr IVPB DAILY [facility] Last Admin: 03/28/16 09:59 Dose: 250 mls/hr Ceftriaxone Sodium (Rocephin 1gm Ivpb (Pre-Docked)) 50 mls @ 100 mls/hr IVPB DAILY [facility] Last Admin: 03/28/16 09:32 Dose: 100 mls/hr - Objective Vital Signs: Vital Signs Temperature 98.2 F 03/28/16 08:56 Pulse Rate 82 03/28/16 10:43 Respiratory Rate 18 03/28/16 08:56 Blood Pressure 139/69 03/28/16 08:56 O2 Sat by Pulse Oximetry (%) 92 L 03/28/16 10:43 Constitutional: Yes: No Distress, Calm Cardiovascular: Yes: Regular Rate and Rhythm, S1, S2 Respiratory: Yes: Regular (bibasilar crackles, slightly les than the previous day) Gastrointestinal: Yes: Normal Bowel Sounds, Soft Extremities: Yes: WNL (no edema, palpable pulses) Edema: No Neurological: Yes: Alert, Oriented Psychiatric: Yes: WNL (good mood and affect) Labs Lab Results: CBC, BMP 03/28/16 06:30 Imaging - Results Chest X-ray: Report Reviewed, Image Reviewed Assessment/Plan Sepsis 2/2 to Community Acquired pneumonia -Arrived with productive cough, infiltrates on xray, and low grade fever. was also slightly tachy -Lactate was negative, blood and sputum cultures sent but have not grown anything yet -urine legionella and pneumo were both negative -Waiting for Mycoplasma IgM -Continue on IV AZithro 250 and Roephin 1gm -Was satting at 92 percent on room air-pre and post exercise o2 to determine need for for o2 CLL White count stable here at 45. Previously in 2012 was was 46 -f/u with Dr. De Oliveira about recent counts HLD -continue on home crestor -continue home ASA
--- NOTE | 2016-03-28 14:24 | PN ---
Physical Exam: SUBJECTIVE: Patient seen and examined at bedside. Feels better today. Decreased cough, sputum today. Denies CP, SOB, abd pain, N/V/F/C. OBJECTIVE: Vital Signs Temperature 98.2 F 03/28/16 14:12 Pulse Rate 84 03/28/16 14:12 Respiratory Rate 16 03/28/16 14:12 Blood Pressure 126/75 03/28/16 14:12 O2 Sat by Pulse Oximetry (%) 92 L 03/28/16 10:43 GENERAL: The patient is awake, alert, and fully oriented, in no acute distress. HEAD: Normal with no signs of trauma. EYES: PERRL, extraocular movements intact, sclera anicteric, conjunctiva clear. No ptosis. ENT:moist mucous membranes. NECK: Trachea midline, full range of motion, supple. LUNGS: Bibasilar crackles HEART: Regular rate and rhythm, S1, S2 without murmur, rub or gallop. ABDOMEN: Soft, nontender, nondistended, normoactive bowel sounds, no guarding, no rebound, no hepatosplenomegaly, no masses. EXTREMITIES: 2+ pulses, warm, well-perfused, no edema. NEUROLOGICAL: Normal speech, gait notobserved. PSYCH: Possibly underlying dementia SKIN: Warm, dry, normal turgor, no rashes or lesions noted Laboratory Results - last 24 hr 03/27/16 03/28/16 17:22 06:30 WBC 45.4 H* RBC 4.40 Hgb 13.7 Hct 41.7 MCV 94.8 MCHC 32.9 RDW 13.7 Plt Count 257 MPV 7.3 L POC Glucometer 121 Microbiology 03/27/16 08:00 Sputum - Expectorated Sputum Culture - Preliminary NORMAL RESPIRATORY TERA 03/26/16 18:28 Blood - Peripheral Venous Blood Culture - Preliminary NO GROWTH OBTAINED AFTER 24 HOURS, INCUBATION TO CONTINUE FOR 4 DAYS. 03/26/16 18:28 Blood - Peripheral Venous Blood Culture - Preliminary NO GROWTH OBTAINED AFTER 24 HOURS, INCUBATION TO CONTINUE FOR 4 DAYS. 03/27/16 08:00 Urine - Urine Clean Catch Legionella Antigen - Final 03/27/16 08:00 Urine - Urine Clean Catch Streptococcus pneumoniae Antigen ( M - Final 03/27/16 07:44 Nasopharyngeal Swab Respiratory Virus (PCR) - Preliminary 03/26/16 18:30 Nasopharyngeal Aspirate Influenza Types A,B Antigen (PAIGE) - Final 03/26/16 18:30 Nasopharyngeal Aspirate - Final Active Medications Generic Name Dose Route Start Last Admin Trade Name Freq PRN Reason Stop Dose Admin Acetaminophen 650 mg 03/27/16 01:56 Tylenol - PO Q8H PRN FEVER OR PAIN Albuterol Sulfate 1 amp 03/27/16 10:36 Ventolin 0.083% Nebulizer Soln - NEB Q4H PRN SHORT OF BREATH/WHEEZING Albuterol/Ipratropium 1 amp 03/27/16 14:00 03/28/16 13:42 Duoneb - NEB 1 amp TIDR [facility] Administration Aspirin 81 mg 03/27/16 10:00 03/28/16 09:19 Asa - PO 81 mg DAILY [facility] Administration Azithromycin 250 mls @ 250 mls/hr 03/27/16 10:00 03/28/16 09:59 Zithromax 500mg Ivpb (Pre-Docked) IVPB 250 mls/hr DAILY [facility] Administration Ceftriaxone Sodium 50 mls @ 100 mls/hr 03/27/16 10:00 03/28/16 09:32 Rocephin 1gm Ivpb (Pre-Docked) IVPB 100 mls/hr DAILY [facility] Administration ASSESSMENT/PLAN: 80 y/o M w/PMH of CLL, Bladder cancer in remission, diverticulosis, DM, fatty liver disease presented to ER with c/o cough with green sputum x 1 day. Admitted for CAP. -CAP -WBC elevated but most likely secondary to CLL -Pt had one CBC from Dr. Landin as outpatient in 2012 where WBC was 43. Call was placed out to office by medical student but was not open. -Usually f/u with Dr. De Oliveira for management. -improving currently -c/w ceftriaxone 1g iv qd, azithromycin 500 mg iv qd -UAg for PNA neg -rapid flu neg -f/u Resp virus panel, mycoplasma -SpCx (-) -BCx (-) -tylenol 650 mg po q8h prn for fever -CLL -elevated WBC most likely due to CLL -DM -c/w ISS, BGMs -FEN -regular diet -DVT ppx -ambulation advised -Dispo: -monitor for another night, if pt continues to improve, possible d/c with oral abx soon Problem List - Problems (1) CLL (chronic lymphocytic leukemia) Code(s): C91.10 - CHRONIC LYMPHOCYTIC LEUK OF B-CELL TYPE NOT ACHIEVE REMIS (2) Hyperlipidemia Code(s): E78.5 - HYPERLIPIDEMIA, UNSPECIFIED (3) Hypoxia Code(s): R09.02 - HYPOXEMIA (4) Pneumonia Code(s): J18.9 - PNEUMONIA, UNSPECIFIED ORGANISM Qualifiers: Qualified Code(s): J18.9 - Pneumonia, unspecified organism (5) Diabetes Code(s): E11.9 - TYPE 2 DIABETES MELLITUS WITHOUT COMPLICATIONS Visit type - Emergency Visit Emergency Visit: Yes ED Registration Date: 03/26/16 Care time: The patient presented to the Emergency Department on the above date and was hospitalized for further evaluation of their emergent condition. - New Patient This patient is new to me today: No - Critical Care Critical Care patient: No
--- NOTE | 2016-03-28 15:57 | PN ---
Progress Note (short form) - Note Progress Note: PULMONARY AWAKE/ALERT/DRESSED AND WANTING TO GO HOME VSS/AFEBRILE ANICTERIC BIBASELAR RHONCHI S1S2 BS+ NO EDEMA LABS/MEDS/NOTES/IMAGING/MICRO REVIEWED Pneumonia CLL Hyperlipidemia Diverticulosis - ceftriaxone, azithromycin - f/u cultures - O2 as needed - inhaled bronchodilators - PO as tolerated - DVT prophylaxsis Jhon ACE MD
--- NOTE | 2016-03-28 16:31 | PN ---
Teaching Attending Note Name of Resident: Daniel Mason ATTENDING PHYSICIAN STATEMENT I saw and evaluated the patient. I reviewed the resident's note and discussed the case with the resident. I agree with the resident's findings and plan as documented. SUBJECTIVE:currently asymptomatic. states cough has improved.with minimal production of sputum. denies CP, fever, chills, N/V/C/D. Requesting to go home. OBJECTIVE: Last Vital Signs Temp Pulse Resp BP Pulse Ox 98.2 F 84 16 126/75 92 L 03/28/16 14:12 03/28/16 14:12 03/28/16 14:12 03/28/16 14:12 03/28/16 10:43 General NAD CV S1 S2 RRR no murmur/rub/gallop Lungs CTA B/L no wheezing/rales/rhonchi ASSESSMENT AND PLAN: 80yo M with PMH CLL, bladder cancer, HTN and fatty liver presented to the ER and was admitted for further evaluation of their emergent condition 1. Sepsis due to PNA- afebrile. clinically improved. saturating 93% on RA. requesting to go home. obtained 2 days of Ceftriaxone and azithromycin. will d/ c on azithromycin and amoxicillin to complete 5 day course. 2. Acute hypoxic respiratory failure- now resolved. saturating well on RA. 3. CLL- appears to be stable. as per pt not on therapy. will need to monitor leukocytes with PMD 4. bladder ca- in remission per pt. not on chemo/rtx 5. d/c home. instructed to f/u with PMD on thursday or thursday
[2016-03-28 16:56] VITALS: BP 126/62; PULSE 81; TEMP 98
--- NOTE | 2016-03-28 16:59 | DS ---
Physical Exam: SUBJECTIVE: Patient seen and examined at bedside. Feels better today. Decreased cough, sputum today. Denies CP, SOB, abd pain, N/V/F/C. OBJECTIVE: Vital Signs Temperature 98 F 03/28/16 16:55 Pulse Rate 81 03/28/16 16:55 Respiratory Rate 20 03/28/16 16:55 Blood Pressure 126/62 03/28/16 16:55 O2 Sat by Pulse Oximetry (%) 92 L 03/28/16 10:43 PHYSICAL EXAM GENERAL: The patient is awake, alert, and fully oriented, in no acute distress. HEAD: Normal with no signs of trauma. EYES: PERRL, extraocular movements intact, sclera anicteric, conjunctiva clear. No ptosis. ENT:moist mucous membranes. NECK: Trachea midline, full range of motion, supple. LUNGS: Bibasilar crackles HEART: Regular rate and rhythm, S1, S2 without murmur, rub or gallop. ABDOMEN: Soft, nontender, nondistended, normoactive bowel sounds, no guarding, no rebound, no hepatosplenomegaly, no masses. EXTREMITIES: 2+ pulses, warm, well-perfused, no edema. NEUROLOGICAL: Normal speech, gait notobserved. PSYCH: Possibly underlying dementia SKIN: Warm, dry, normal turgor, no rashes or lesions noted LABS Laboratory Results - last 24 hr 03/27/16 03/28/16 17:22 06:30 WBC 45.4 H* RBC 4.40 Hgb 13.7 Hct 41.7 MCV 94.8 MCHC 32.9 RDW 13.7 Plt Count 257 MPV 7.3 L POC Glucometer 121 Microbiology 03/27/16 08:00 Sputum - Expectorated Gram Stain - Final 03/27/16 08:00 Sputum - Expectorated Sputum Culture - Preliminary NORMAL RESPIRATORY TERA 03/26/16 18:28 Blood - Peripheral Venous Blood Culture - Preliminary NO GROWTH OBTAINED AFTER 24 HOURS, INCUBATION TO CONTINUE FOR 4 DAYS. 03/26/16 18:28 Blood - Peripheral Venous Blood Culture - Preliminary NO GROWTH OBTAINED AFTER 24 HOURS, INCUBATION TO CONTINUE FOR 4 DAYS. 03/27/16 08:00 Urine - Urine Clean Catch Legionella Antigen - Final 03/27/16 08:00 Urine - Urine Clean Catch Streptococcus pneumoniae Antigen ( M - Final 03/27/16 07:44 Nasopharyngeal Swab Respiratory Virus (PCR) - Preliminary 03/26/16 18:30 Nasopharyngeal Aspirate Influenza Types A,B Antigen (PAIGE) - Final 03/26/16 18:30 Nasopharyngeal Aspirate - Final HOSPITAL COURSE: Date of Admission:03/26/16 Date of Discharge: 03/28/16 80 y/o M w/PMH of CLL, Bladder cancer in remission, diverticulosis, DM, fatty liver disease presented to ER with c/o cough with green sputum x 1 day. Admitted for CAP. CXR showed diffusely increased interstitial markings. Pt was found to have WBC count of 42, most likely from his CLL. A call was placed to Dr. Landin's office who he sees as his PCP for a baseline WBC and a CBC from 2012 showed a WBC of 46. He follows with Dr. De Oliveira as an outpatient normally but office was unable to be reached. UAg for pneumonia, rapid flu, SpCx were all negative. BCx was negative up to date of discharge. Pt was treated with rocephin and azithromycin and had marked improvement the next day. His cough and sputum production decreased tremendously. He was discharged with instructions to follow up with Dr. Landin within 1 week and was sent on home augmentin and azithromycin to be completed for 3 more days. Minutes to complete discharge: 35 Discharge Summary Reason For Visit: PNEUMONIA/HYPOXIA Current Active Problems Hypoxia (Acute) Pneumonia (Acute) CLL (chronic lymphocytic leukemia) (Chronic) Diabetes (Chronic) Diverticulosis (Chronic) Hyperlipidemia (Chronic) Condition: Improved - Instructions Diet, Activity, Other Instructions: Follow up with Dr. Landin within 1 week. You will need to continue taking antibiotics while at home and you must complete the course of antibiotics as prescribed. The following medications have been prescribed and sent to your pharmacy: Augmentin to take twice a day for 3 more days Azithromycin to take once per day for 3 more days. Eat yogurt to help with possible side effect of upset stomach of antibiotics. If you develop fevers or chills, or worsening shortness of breath call Dr. Lanidn or come back to the ER. Referrals: Black Landin MD [Primary Care Provider] - Disposition: HOME - Home Medications Comprehensive Discharge Medication List: Ambulatory Orders Ascorbic Acid [Vitamin C] 100 mg PO DAILY 10/14/13 Aspirin [ASA -] 81 mg PO DAILY 10/14/13 Folic Acid/Multivit-Min/Lutein [Centrum Silver Chewable Tablet] 1 each PO DAILY 10/14/13 Ubidecarenone/Vitamin E [Co Q-10 50 mg Softgel] 1 each PO DAILY 10/14/13 Vitamin B Complex 1 each PO DAILY 10/14/13 Cholecalciferol (Vitamin D3) [Vitamin D3 -] 50,000 unit PO WEEKLY 03/26/16 Amoxicillin/Potassium Clav [Augmentin 875-125 Tablet] 1 each PO BID #6 tablet Azithromycin [Zithromax 250mg Tablets -] 250 mg PO DAILY #3 tab 03/28/16 Problem List - Problems (1) CLL (chronic lymphocytic leukemia) Code(s): C91.10 - CHRONIC LYMPHOCYTIC LEUK OF B-CELL TYPE NOT ACHIEVE REMIS (2) Hyperlipidemia Code(s): E78.5 - HYPERLIPIDEMIA, UNSPECIFIED (3) Hypoxia Code(s): R09.02 - HYPOXEMIA (4) Pneumonia Code(s): J18.9 - PNEUMONIA, UNSPECIFIED ORGANISM Qualifiers: Pneumonia type: due to unspecified organism Laterality: unspecified laterality Lung location: unspecified part of lung Qualified Code(s): J18.9 - Pneumonia, unspecified organism (5) Diabetes Code(s): E11.9 - TYPE 2 DIABETES MELLITUS WITHOUT COMPLICATIONS This patient is new to me today: No Emergency Visit: Yes ED Registration Date: 03/26/16 Care time: The patient presented to the Emergency Department on the above date and was hospitalized for further evaluation of their emergent condition. Critical Care patient: No - Discharge Referral Referred to [facility] Med P.C.: No
== END 2016-03-28 17:39 | disposition home or self-care (01) | DRG 871 ==
LOC: JER 17:37 → JERBED 22:38 → J8W 03-27 00:55
PROVIDERS: ADMIT Internal Medicine; ATTEND Internal Medicine
DX: A41.9 Sepsis, unspecified organism (principal); J18.9 Pneumonia, unspecified organism; J96.01 Acute respiratory failure with hypoxia; C91.10 Chronic lymphocytic leukemia of B-cell type not having achieved remission; E78.5 Hyperlipidemia, unspecified; Z85.51 Personal history of malignant neoplasm of bladder; K57.90 Diverticulosis of intestine, part unspecified, without perforation or abscess without bleeding; K76.0 Fatty (change of) liver, not elsewhere classified; E11.9 Type 2 diabetes mellitus without complications
CPT/HCPCS: 36415; 71010-TC; 80053; 82550; 82553; 83605; 83880; 84484; 85025; 85027; 86738; 87040; 87070; 87205; 87633; 87804; 87899; 93005; 93010; 94640; 99285-25